=== PATIENT | male | born 1975 | race Caucasian/White ===

== ENCOUNTER 2017-12-18 23:37 | Emergency (ER) | payer SELFPAY ==
[~2017-12-18] VITALS: Ht 175.3 cm; Wt 69.0 kg
[2017-12-18 23:41] VITALS: BP 111/64; PULSE 73; RESP 16; TEMP 98.2; O2SAT 98
[2017-12-19] MEDS ORDERED: PIPERACIL-TAZO 3.375 GM PREMIX 50 ML IV ONE
[2017-12-19] MEDS ORDERED: CLIN300C5 PO (00:59)
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
[2017-12-19] MEDS ORDERED: DIPHTH/TETANUS/ACEL PERTUSSIS (BOOSTER) 0.5 ML VIAL/PFS IM ONE (01:00)
== END 2017-12-19 01:29 | disposition home or self-care (01) ==
LOC: NEPC 23:37
DX: S91.311A Laceration without foreign body, right foot, initial encounter (principal); W45.8XXA Other foreign body or object entering through skin, initial encounter; Y93.55 Activity, bike riding; L03.115 Cellulitis of right lower limb; Z23 Encounter for immunization
CPT/HCPCS: 90471; 90715; 96374; 99284; J2543